=== PATIENT | female | born 1995 | race Caucasian/White ===

== ENCOUNTER 2022-08-08 08:39 | Outpatient (CLI) | payer BC, SELFPAY ==
[2022-08-08 11:05] LABS: HIV 1/2/P24 Combo Screen* Negative (Negative)
[2022-08-08 11:40] LABS: Chlamydia DNA Amplified* NOT DETECTED (No Detected); GC DNA Amplified* NOT DETECTED (No Detected)
[2022-08-08 11:44] LABS: Chloride* 105 mmol/L (96-114); Potassium* 4.5 mmol/L (3.6-5.1); Sodium* 141 mmol/L (135-149)
[2022-08-08 11:46] LABS: Creatinine* 0.7 mg/dL (0.5-1.5); Estimated Glomerular Filt Rate 121 ml/min
[2022-08-08 11:47] LABS: Blood Urea Nitrogen* 16 mg/dL (5-24); Calcium* 9.5 mg/dL (8.4-10.6); Carbon Dioxide* 25 mmol/L (20-32); Glucose* 111 mg/dL (60-115)
[2022-08-08 12:15] LABS: Hepatitis B Surface Antigen* Negative (Negative)
[2022-08-08 12:32] LABS: Hepatitis C Virus Antibody* Negative (Negative)
[2022-08-09 20:38] LABS: Rapid Plasma Reagin (RPR) Non Reactive (Non Reactive)
== END 2022-08-08 08:40 | disposition home or self-care (01) ==
PROVIDERS: PCP Family Medicine; Visit Provider Obstetrics & Gynecology
DX: Z01.419 Encounter for gynecological examination (general) (routine) without abnormal findings (principal); Z13.29 Encounter for screening for other suspected endocrine disorder; Z11.3 Encounter for screening for infections with a predominantly sexual mode of transmission; Z11.59 Encounter for screening for other viral diseases
CPT/HCPCS: 80048; 84443; 86592; 86703; 86803; 87340; 87491; 87591

== ENCOUNTER 2023-05-20 15:12 | Outpatient (CLI) | payer BC, SELFPAY | END 2023-05-20 15:13 | disposition home or self-care (01) | LOC: AMB 05-21 10:58 | PROVIDERS: PCP Family Medicine; Visit Provider Family Medicine | DX: S09.93XA Unspecified injury of face, initial encounter (principal); S19.9XXA Unspecified injury of neck, initial encounter; Y04.2XXA Assault by strike against or bumped into by another person, initial encounter | CPT/HCPCS: A0425; A0429 ==

== ENCOUNTER 2023-05-20 15:33 | Emergency (ER) | payer BC, SELFPAY ==
[2023-05-20 15:46] VITALS: BP 140/92; PULSE 67; RESP 16; TEMP 36.8; O2SAT 97; BMI 35.1
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
--- NOTE | 2023-05-20 16:10 | CRLHL7_ITS ---
For Patients: As a result of the Century Cures Act, medical imaging exams and procedure reports are released immediately into your electronic medical record. You may view this report before your referring provider. If you have questions, please contact your health care provider. Indication: Trauma. Facial pain Technique: Noncontrast axial CT of the facial bones with coronal reformats are provided. No comparisons. Findings: Very mild mucosal thickening within the floor of the maxillary sinuses. The remainder of the visualized paranasal sinuses are clear. The ostiomeatal complexes are patent bilaterally. The visualized intraorbital contents appear within normal limits. The visualized osseous structures of the face appear intact. Mild lucencies surround the posterior mandibular molars that appears chronic in nature. Impression: 1. No radiographic evidence of acute osseous injury. 2. Very mild inflammatory changes within the floor of the maxillary sinuses. Dictated by Juanpablo Huddleston MD @ 05/20/2023 5:27:00 PM Please note that all CT scans at this facility use dose modulation, iterative reconstruction, and/or weight-based dosing when appropriate to reduce radiation dose to as low as reasonably achievable. Dictated by: Juanpablo Huddleston MD @ 05/20/2023 17:27:08 (Electronically Signed)
--- NOTE | 2023-05-20 16:10 | CRLHL7_ITS ---
For Patients: As a result of the Century Cures Act, medical imaging exams and procedure reports are released immediately into your electronic medical record. You may view this report before your referring provider. If you have questions, please contact your health care provider. INDICATION: Headache. Trauma. TECHNIQUE: Non-contrast CT of the head is submitted. No comparisons. FINDINGS: The ventricles, sulci and gyri are of normal size, shape and contour. Midline structures are centrally located. No convincing evidence of intra- or extra-axial fluid collections. IMPRESSION: 1. No radiographic evidence of acute intracranial abnormalities. Dictated by Juanpablo Huddleston MD @ 05/20/2023 5:24:44 PM Please note that all CT scans at this facility use dose modulation, iterative reconstruction, and/or weight-based dosing when appropriate to reduce radiation dose to as low as reasonably achievable. Dictated by: Juanpablo Huddleston MD @ 05/20/2023 17:24:54 (Electronically Signed)
[2023-05-20] MEDS: ONDANSETRON ODT 4 MG TAB PO (16:20)
[2023-05-20] MEDS: ACETAMINOPHEN 500 MG TABLET 1000 MG PO (16:20)
== END 2023-05-20 18:00 | disposition home or self-care (01) ==
PROVIDERS: Emergency Provider Family Medicine; PCP Family Medicine
DX: S06.0X0A Concussion without loss of consciousness, initial encounter (principal); Y04.2XXA Assault by strike against or bumped into by another person, initial encounter
CPT/HCPCS: 70450; 70486; 99283; 99284; A9270

== ENCOUNTER 2023-06-09 20:08 | Outpatient (CLI) | payer BC, SELFPAY | END 2023-06-09 20:09 | disposition home or self-care (01) | LOC: AMB 06-12 12:26 | PROVIDERS: PCP Family Medicine; Visit Provider Emergency Medicine | DX: R07.89 Other chest pain (principal) | CPT/HCPCS: A0425; A0427 ==

== ENCOUNTER 2023-06-09 20:39 | Emergency (ER) | payer BC, SELFPAY ==
[2023-06-09] VITALS (19 sets, daily range): BP systolic 116–134; BP diastolic 58–88; PULSE 38–72; RESP 16–18; TEMP 35.8; O2SAT 98–100
--- NOTE | 2023-06-09 20:56 | CRLHL7_ITS ---
For Patients: As a result of the Century Cures Act, medical imaging exams and procedure reports are released immediately into your electronic medical record. You may view this report before your referring provider. If you have questions, please contact your health care provider. INDICATION: Chest pain. TECHNIQUE: Chest 2 views. COMPARISON: None. FINDINGS: Cardiovascular and mediastinum: Heart size and vasculature are normal in caliber and appearance. Lungs and pleural spaces: Lungs are clear. No sign of infiltrate or mass. No sign of pleural effusion. No pneumothorax. Bones and soft tissues: No significant findings. IMPRESSION: No acute or significant findings. Dictated by Talon Almaguer MD @ 06/09/2023 11:01:57 PM (Electronically Signed)
[2023-06-09] MEDS: 0.9 % SODIUM CHLORIDE 1000 ml 1,000 ML IV (21:00)
[2023-06-09 21:19] LABS: Basophils Absolute Auto 0.03 K/uL (0.00-0.30); Basophils Percent Auto 0.4 % (0.0-3.0); Eosinophils Absolute Auto 0.08 K/uL (0.00-0.50); Eosinophils Percent Auto 1.2 % (0.0-7.0); Hematocrit 40.8 % (33.0-51.0); Hemoglobin* 13.7 gm/dL (12.0-16.0); Immature Granulocytes Abs Auto 0.01 K/uL (0.00-0.30); Immature Granulocytes Pct Auto 0.1 %; Lymphocytes Absolute Auto 2.02 K/uL (0.90-2.90); Lymphocytes Percent Auto 29.1 % (20-44); Mean Corpuscular HGB Conc 34 gm/dL (32-36); Mean Corpuscular Hemoglobin 29 pg (26-34); Mean Corpuscular Volume 85 fL (80-100); Monocytes Percent Auto 4.9 % (0.0-11.0); Neutrophils Absolute Auto 4.47 K/uL (1.7-7.0); Neutrophils Percent Auto 64.3 % (42.0-72.0); Platelet Count* 266 K/uL (140-440); RDW Coefficient of Variation % 12.7 % (11.5-15.5); Red Blood Count 4.81 m/uL (4.00-5.20); White Blood Count* 6.95 K/uL (4.50-11.00)
[2023-06-09 21:23] LABS: Slide Review Reflex No
[2023-06-09 21:31] LABS: Chloride* 111 mmol/L (96-114); Potassium* 3.5 mmol/L (3.6-5.1); Sodium* 140 mmol/L (135-149)
[2023-06-09 21:34] LABS: Creatinine* 0.7 mg/dL (0.5-1.5); Estimated Glomerular Filt Rate 121 ml/min
--- NOTE | 2023-06-09 21:34 | ED.CHESTPAIN ---
HPI - Chest Pain General Date Seen: 06/09/23 <Romario Lopez MD - Last Filed: 06/09/23 23:46> Chief Complaint: Chest Pain <Romario Lopez MD - Last Filed: 06/09/23 23:46> Stated Complaint: Chest Pain <Romario Lopez MD - Last Filed: 06/09/23 23:46> Time Seen by Provider: 06/09/23 20:51 <Romario Lopez MD - Last Filed: 06/09/23 23:46> Source: patient and EMS <Romario Lopez MD - Last Filed: 06/09/23 23:46> Mode of arrival: EMS <Romario Lopez MD - Last Filed: 06/09/23 23:46> Limitations: no limitations <Romario Lopez MD - Last Filed: 06/09/23 23:46> History of Present Illness HPI narrative: Patient is a 27-year-old female who was at home, when she had an episode of chest pain, sweatiness and nausea, the chest pain radiated to her left scapular region, she felt very faint and moving around. 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 She has kind of been lost to follow-up, but did follow-up with the [facility], she saw supervisor maintenance there few years ago, was told that she may need a pacemaker. She had a very slow heart rate, anywhere between 30 and 80 in the rate, and they were concerned, they brought her here lights and sirens, and also started air care. Here she is having some very mild chest pain, no history of any falls trauma, she denies any syncopal episodes, she has had no previous episodes of chest pain. But does have a history of anxiety, <Romario Lopez MD - Last Filed: 06/09/23 23:46> MD complaint: chest pain <Romario Lopez MD - Last Filed: 06/09/23 23:46> Pertinent past history: other (Transposition of the great arteries) <Romario Lopez MD - Last Filed: 06/09/23 23:46> Onset (ago): minute(s) <Romario Lopez MD - Last Filed: 06/09/23 23:46> Timing of current episode: constant <Romario Lopez MD - Last Filed: 06/09/23 23:46> Prior episodes: No <Romario Lopez MD - Last Filed: 06/09/23 23:46> Onset: during rest <Romario Lopez MD - Last Filed: 06/09/23 23:46> Pain location: substernal and left chest <Romario Lopez MD - Last Filed: 06/09/23 23:46> Pain radiation: left scapula <Romario Lopez MD - Last Filed: 06/09/23 23:46> Severity: moderate <Romario Lopez MD - Last Filed: 06/09/23 23:46> Quality: tightness and aching <Romario Lopez MD - Last Filed: 06/09/23 23:46> Exacerbating factors: inspiration, palpation and movement <Romario Lopez MD - Last Filed: 06/09/23 23:46> Associated symptoms: nausea, diaphoresis and sense of impending doom <Romario Lopez MD - Last Filed: 06/09/23 23:46> Treatment prior to arrival: aspirin and nitroglycerin <Romario Lopez MD - Last Filed: 06/09/23 23:46> Risk Factors Thoracic aortic dissection risk factors: none <Romario Lopez MD - Last Filed: 06/09/23 23:46> Related Data On Oral Contraceptives: No <Romario Lopez MD - Last Filed: 06/09/23 23:46> Home Medications: Home Medications Medication Instructions Recorded Confirmed albuterol sulfate 90 mcg/actuation 2 inhalation PRN 05/16/22 05/20/23 aerosol inhaler biotin 10,000 mcg chewable tablet mcg PO 12/07/22 05/20/23 (Hair, Skin and Nails (biotin)) cannibis 12/07/22 05/20/23 eugene-inositol PO QDAY 12/07/22 05/20/23 prenat.vits,justin,vol-nrec-srrxj 1 tab PO QDAY 12/07/22 05/20/23 clonazepam 0.5 mg tablet 0.5 mg PO BID PRN anxiety 05/20/23 05/20/23 Previous Rx's Medication Instructions Recorded divalproex 500 mg tablet,extended 1,000 mg (2 x 500 mg) PO QDAY #60 12/07/22 release 24 hr (Depakote ER) tabs lorazepam 1 mg tablet 1 mg PO QDAY PRN anxiety #30 tabs 12/07/22 <Romario Lopez MD - Last Filed: 06/09/23 23:46> Allergies/Adverse Reactions: Allergies Allergy/AdvReac Type Severity Reaction Status Date / Time lurasidone Allergy Intermediate Headache Verified 05/20/23 15:57 venlafaxine Allergy Intermediate Unknown Verified 05/20/23 15:57 fentanyl Allergy Unknown Verified 05/20/23 15:57 hydromorphone Allergy Unknown Verified 05/20/23 15:57 opiates Allergy itcy and Uncoded 05/20/23 15:58 hives <Romario Lopez MD - Last Filed: 06/09/23 23:46> Review of Systems Status of ROS Reports: 10 or more systems reviewed and unremarkable except as noted in History and below <Romario Lopez MD - Last Filed: 06/09/23 23:46> [facility] Medical History: Medical History Major depression, recurrent ?F33.9 - Major depressive disorder, recurrent, unspecified (ICD-10) Generalized anxiety disorder ?F41.1 - Generalized anxiety disorder (ICD-10) Mild intermittent asthma ?J45.20 - Mild intermittent asthma, uncomplicated (ICD-10) 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 - Discordant ventriculoarterial connection (ICD-10) Posttraumatic stress disorder ?F43.10 - Post-traumatic stress disorder, unspecified (ICD-10) Infection due to severe acute respiratory syndrome coronavirus 2 (SARS-CoV-2) ?U07.1 - COVID-19 (ICD-10) History of pre-eclampsia (01/2017) ?Z87.59 - Personal history of other complications of , childbirth and the [place] (ICD-10) History of abnormal cervical Papanicolaou smear (01/2019) ?Z87.42 - Personal history of other diseases of the female genital tract (ICD-10) Heart murmur ?R01.1 - Cardiac murmur, unspecified (ICD-10) Closed fracture of fifth metacarpal bone ?S62.308A - Unspecified fracture of other metacarpal bone, initial encounter for closed fracture (ICD-10) Bipolar disorder ?F31.9 - Bipolar disorder, unspecified (ICD-10) <Romario Lopez MD - Last Filed: 06/09/23 23:46> Surgical History: Surgical History History of right knee surgery (11/23/15) ?Z98.890 - Other specified postprocedural states (ICD-10) History of laparoscopic cholecystectomy (06/2017) ?Z90.49 - Acquired absence of other specified parts of digestive tract (ICD-10) History of 2 sections (2013) ?Z98.891 - History of uterine scar from previous surgery (ICD-10) <Romario Lopez MD - Last Filed: 06/09/23 23:46> Family History: Family History Brother Bipolar disorder Depression Hepatitis Maternal Grandfather Colon cancer Heart disease Mother Depression Heart disease Diabetes Sister Depression Diabetes Maternal Grandmother Heart disease Paternal Grandmother Ovarian cancer <Romario Lopez MD - Last Filed: 06/09/23 23:46> Social History: Social History Narrative: Single, 2 kids, non-smoker, social EtOH, unemployed, Restricted [place] Smoking Status: Never smoker Do you use any of these nicotine containing products: None How often do you have a drink containing alcohol: never AUDIT-C Alcohol total score: 0 Non-prescribed substance use: marijuana (any form) Non-prescribed substance use details: medical Little interest or pleasure in doing things: nearly every day Feeling down, depressed, or hopeless: nearly every day <Romario Lopez MD - Last Filed: 06/09/23 23:46> Exam Narrative Exam Narrative: Patient is seen and stabilization 1 room. She is speaking to me normally able to scoot from the ambulance gurney over to the bed. Describing the pain over her chest region, her heart rates anywhere from 40 255. Appears to be sinus with occasional pauses. Pupils are equal round reactive to light there is no scleral icterus redness TMs are normal oropharynx normal there is no adenopathy anterior posterior chains her chest is clear bilaterally with no wheezing crackles noted, heart sounds are normal, is no clicks murmurs or gallops, her abdomen is soft, there is no guarding, normal bowel sounds are noted, with no organomegaly, scars on her chest are noted. No palpable chest pain is noted. She has moved able to move all extremities independently well, her pulses in lower extremities and arms are normal. There is no edema, and neurologically she is intact. <Romario Lopez MD - Last Filed: 06/09/23 23:46> Const Vital Signs, click to edit/add: Vital Signs - 24 hr 06/09/23 20:46 06/09/23 20:58 06/09/23 21:00 Temperature 96.5 F L Pulse Rate 68 72 Pulse Rate [Right Pulse Oximeter] 54 L Respiratory Rate 16 Blood Pressure Blood Pressure [Right Upper Arm] 134/88 Pulse Oximetry 100 100 100 Oxygen Delivery Method Room Air 06/09/23 21:02 06/09/23 21:20 06/09/23 21:22 Temperature Pulse Rate 48 L 41 L Pulse Rate [Right Pulse Oximeter] Respiratory Rate 18 18 Blood Pressure 122/69 125/83 Blood Pressure [Right Upper Arm] Pulse Oximetry 100 98 100 Oxygen Delivery Method Room Air Room Air 06/09/23 21:40 06/09/23 21:42 06/09/23 22:00 Temperature Pulse Rate 62 38 L Pulse Rate [Right Pulse Oximeter] Respiratory Rate Blood Pressure 130/84 Blood Pressure [Right Upper Arm] Pulse Oximetry 100 98 99 Oxygen Delivery Method 06/09/23 22:02 06/09/23 22:20 06/09/23 22:22 Temperature Pulse Rate 38 L 40 L Pulse Rate [Right Pulse Oximeter] Respiratory Rate Blood Pressure 120/70 131/76 Blood Pressure [Right Upper Arm] Pulse Oximetry 98 100 Oxygen Delivery Method 06/09/23 22:40 Temperature Pulse Rate 40 L Pulse Rate [Right Pulse Oximeter] Respiratory Rate Blood Pressure Blood Pressure [Right Upper Arm] Pulse Oximetry 99 Oxygen Delivery Method <Romario Lopez MD - Last Filed: 06/09/23 23:46> Vital Signs - 24 hr 06/09/23 20:46 06/09/23 20:58 06/09/23 21:00 Temperature 96.5 F L Pulse Rate 68 72 Pulse Rate [Right Pulse Oximeter] 54 L Respiratory Rate 16 Blood Pressure Blood Pressure [Right Upper Arm] 134/88 Pulse Oximetry 100 100 100 Oxygen Delivery Method Room Air 06/09/23 21:02 06/09/23 21:20 06/09/23 21:22 Temperature Pulse Rate 48 L 41 L Pulse Rate [Right Pulse Oximeter] Respiratory Rate 18 18 Blood Pressure 122/69 125/83 Blood Pressure [Right Upper Arm] Pulse Oximetry 100 98 100 Oxygen Delivery Method Room Air Room Air 06/09/23 21:40 06/09/23 21:42 06/09/23 22:00 Temperature Pulse Rate 62 38 L Pulse Rate [Right Pulse Oximeter] Respiratory Rate Blood Pressure 130/84 Blood Pressure [Right Upper Arm] Pulse Oximetry 100 98 99 Oxygen Delivery Method 06/09/23 22:02 06/09/23 22:20 06/09/23 22:22 Temperature Pulse Rate 38 L 40 L Pulse Rate [Right Pulse Oximeter] Respiratory Rate Blood Pressure 120/70 131/76 Blood Pressure [Right Upper Arm] Pulse Oximetry 98 100 Oxygen Delivery Method 06/09/23 22:40 Temperature Pulse Rate 40 L Pulse Rate [Right Pulse Oximeter] Respiratory Rate Blood Pressure Blood Pressure [Right Upper Arm] Pulse Oximetry 99 Oxygen Delivery Method <Rufina Mcfadden MD - Last Filed: 06/10/23 01:02> Documenting provider has reviewed patient's vital signs: yes <Romario Lopez MD - Last Filed: 06/09/23 23:46> Course Course Hospital Course: Patient continues to be bradycardiac in 35-40 range. She is symptomatic when she is sitting up, I did speak to from cardiology at the [facility], unfortunately are full, they are checking for beds at [facility]. He agrees that she needs to be transferred to electrophysiology and possible pacemaker placement <Romario Lopez MD - Last Filed: 06/09/23 23:46> Reevaluation(s) Time of Reevaluation #1: 23:46 <Romario Lopez MD - Last Filed: 06/09/23 23:46> Reevaluation #1: Patient in the room, continues to be bradycardiac between 37 and also 41. I did speak to from Cardiology, he recommended that we transfer to [facility], I understand they have a bed there, where were currently waiting for a call back from the hospitalist. <Romario Lopez MD - Last Filed: 06/09/23 23:46> Reevaluation #2: Spoke to Dr. Mcgrath, cardiology at [facility], as well as Dr. Das, hospitalist who accepted the patient for transfer. Patient has remained hemodynamically stable although bradycardic while she has been here. <Rufina Mcfadden MD - Last Filed: 06/10/23 01:02> Vital Signs Vital signs: Initial Vital Signs Temperature 96.5 F L 06/09/23 20:46 Temperature Source Temporal Artery Scan 06/09/23 20:46 Pulse Rate 54 L 06/09/23 20:46 Pulse Rhythm Regular 06/09/23 20:46 Respiratory Rate 16 06/09/23 20:46 Blood Pressure 134/88 06/09/23 20:46 Blood Pressure Mean 103 06/09/23 20:46 Blood Pressure Position Semi-Fowlers 06/09/23 20:46 Pulse Oximetry 100 06/09/23 20:46 Oxygen Delivery Method Room Air 06/09/23 20:46 Vital Signs Temperature 96.5 F L 06/09/23 20:46 Pulse Rate 54 L 06/09/23 20:46 Respiratory Rate 16 06/09/23 20:46 Blood Pressure 134/88 06/09/23 20:46 Pulse Oximetry 100 06/09/23 20:46 Oxygen Delivery Method Room Air 06/09/23 20:46 Temperature 96.5 F L 06/09/23 20:46 Pulse Rate 40 L 06/09/23 22:40 Respiratory Rate 18 06/09/23 21:22 Blood Pressure 131/76 06/09/23 22:22 Pulse Oximetry 99 06/09/23 22:40 Oxygen Delivery Method Room Air 06/09/23 21:22 <Romario Lopez MD - Last Filed: 06/09/23 23:46> Initial Vital Signs Temperature 96.5 F L 06/09/23 20:46 Temperature Source Temporal Artery Scan 06/09/23 20:46 Pulse Rate 54 L 06/09/23 20:46 Pulse Rhythm Regular 06/09/23 20:46 Respiratory Rate 16 06/09/23 20:46 Blood Pressure 134/88 06/09/23 20:46 Blood Pressure Mean 103 06/09/23 20:46 Blood Pressure Position Semi-Fowlers 06/09/23 20:46 Pulse Oximetry 100 06/09/23 20:46 Oxygen Delivery Method Room Air 06/09/23 20:46 Vital Signs Temperature 96.5 F L 06/09/23 20:46 Pulse Rate 54 L 06/09/23 20:46 Respiratory Rate 16 06/09/23 20:46 Blood Pressure 134/88 06/09/23 20:46 Pulse Oximetry 100 06/09/23 20:46 Oxygen Delivery Method Room Air 06/09/23 20:46 Temperature 96.5 F L 06/09/23 20:46 Pulse Rate 40 L 06/09/23 22:40 Respiratory Rate 18 06/09/23 21:22 Blood Pressure 131/76 06/09/23 22:22 Pulse Oximetry 99 06/09/23 22:40 Oxygen Delivery Method Room Air 06/09/23 21:22 <Rufina Mcfadden MD - Last Filed: 06/10/23 01:02> MDM - Chest Pain MDM Narrative Medical decision making narrative: During the evaluation of this patient I considered multiple differential diagnosis is. The life-threatening differential diagnosis include coronary disease/[place], pulmonary embolism, pneumothorax, pneumonia, and aortic dissection. Other differential diagnosis included but were not limited to pericarditis, myocarditis, chest wall pain, GERD, esophageal rupture, rib fracture contusion, pleurisy, as well as other etiologies. <Romario Lopez MD - Last Filed: 06/09/23 23:46> During the evaluation of this patient I considered multiple differential diagnosis is. The life-threatening differential diagnosis include coronary disease/AZ, pulmonary embolism, pneumothorax, pneumonia, and aortic dissection. Other differential diagnosis included but were not limited to pericarditis, myocarditis, chest wall pain, GERD, esophageal rupture, rib fracture contusion, pleurisy, as well as other etiologies. Patient will be transferred to [facility] at this time, patient transferred in stable condition. <Rufina Mcfadden MD - Last Filed: 06/10/23 01:02> Medical Records Data Attestation: I reviewed the patient's medical records. <Romario Lopez MD - Last Filed: 06/09/23 23:46> Lab Data Labs: Lab Results 06/09/23 06/09/23 06/09/23 Range/Units 20:57 21:11 21:24 WBC 6.95 (4.50-11.00) K/uL RBC 4.81 (4.00-5.20) m/uL Hgb 13.7 (12.0-16.0) gm/dL Hct 40.8 (33.0-51.0) % MCV 85 (80-100) fL MCH 29 (26-34) pg MCHC 34 (32-36) gm/dL RDW Coeff of Adri 12.7 (11.5-15.5) % Plt Count 266 (140-440) K/uL Neut % (Auto) 64.3 (42.0-72.0) % Lymph % (Auto) 29.1 (20-44) % [place] % (Auto) 4.9 (0.0-11.0) % Eos % (Auto) 1.2 (0.0-7.0) % Baso % (Auto) 0.4 (0.0-3.0) % Neut # (Auto) 4.47 (1.7-7.0) K/uL Lymph # (Auto) 2.02 (0.90-2.90) K/uL [place] # (Auto) 0.30 (0.00-0.90) K/UL Eos # (Auto) 0.08 (0.00-0.50) K/uL Baso # (Auto) 0.03 (0.00-0.30) K/uL Abs Immat Gran (auto) 0.01 (0.00-0.30) K/uL Imm/Tot Granulo (auto) 0.1 % D-Dimer Quant (PE/DVT) < 0.27 (0.00-0.50) ug/ml Sodium 140 (135-149) mmol/L Potassium 3.5 L (3.6-5.1) mmol/L Chloride 111 (96-114) mmol/L Carbon Dioxide 19 L (20-32) mmol/L BUN 17 (5-24) mg/dL Creatinine 0.7 (0.5-1.5) mg/dL Estimated GFR 121 ml/min Glucose 99 (60-115) mg/dL Calcium 9.0 (8.4-10.6) mg/dL NT-Pro-B Natriuret Pep 25 pg/mL HCG, Qual Negative (Negative) Ethyl Alcohol < 0.01 L (0.01-0.03) % SARS-CoV-2 (PCR) Negative SARS-CoV-2 (Negative) Influenza Type A (PCR) Negative PCR FLU A (Negative) Influenza Type B (PCR) Negative PCR FLU B (Negative) RSV (PCR) Negative PCR RSV (Negative) POC Troponin I 0.00 L (0.01-0.04) ng/ml 06/09/23 Range/Units 23:00 WBC (4.50-11.00) K/uL RBC (4.00-5.20) m/uL Hgb (12.0-16.0) gm/dL Hct (33.0-51.0) % MCV (80-100) fL MCH (26-34) pg MCHC (32-36) gm/dL RDW Coeff of Adri (11.5-15.5) % Plt Count (140-440) K/uL Neut % (Auto) (42.0-72.0) % Lymph % (Auto) (20-44) % [place] % (Auto) (0.0-11.0) % Eos % (Auto) (0.0-7.0) % Baso % (Auto) (0.0-3.0) % Neut # (Auto) (1.7-7.0) K/uL Lymph # (Auto) (0.90-2.90) K/uL [place] # (Auto) (0.00-0.90) K/UL Eos # (Auto) (0.00-0.50) K/uL Baso # (Auto) (0.00-0.30) K/uL Abs Immat Gran (auto) (0.00-0.30) K/uL Imm/Tot Granulo (auto) % D-Dimer Quant (PE/DVT) (0.00-0.50) ug/ml Sodium (135-149) mmol/L Potassium (3.6-5.1) mmol/L Chloride (96-114) mmol/L Carbon Dioxide (20-32) mmol/L BUN (5-24) mg/dL Creatinine (0.5-1.5) mg/dL Estimated GFR ml/min Glucose (60-115) mg/dL Calcium (8.4-10.6) mg/dL NT-Pro-B Natriuret Pep pg/mL HCG, Qual (Negative) Ethyl Alcohol (0.01-0.03) % SARS-CoV-2 (PCR) (Negative) Influenza Type A (PCR) (Negative) Influenza Type B (PCR) (Negative) RSV (PCR) (Negative) POC Troponin I 0.01 (0.01-0.04) ng/ml <Romario Lopez MD - Last Filed: 06/09/23 23:46> Lab Results 06/09/23 06/09/23 06/09/23 Range/Units 20:57 21:11 21:24 WBC 6.95 (4.50-11.00) K/uL RBC 4.81 (4.00-5.20) m/uL Hgb 13.7 (12.0-16.0) gm/dL Hct 40.8 (33.0-51.0) % MCV 85 (80-100) fL MCH 29 (26-34) pg MCHC 34 (32-36) gm/dL RDW Coeff of Adri 12.7 (11.5-15.5) % Plt Count 266 (140-440) K/uL Neut % (Auto) 64.3 (42.0-72.0) % Lymph % (Auto) 29.1 (20-44) % [place] % (Auto) 4.9 (0.0-11.0) % Eos % (Auto) 1.2 (0.0-7.0) % Baso % (Auto) 0.4 (0.0-3.0) % Neut # (Auto) 4.47 (1.7-7.0) K/uL Lymph # (Auto) 2.02 (0.90-2.90) K/uL [place] # (Auto) 0.30 (0.00-0.90) K/UL Eos # (Auto) 0.08 (0.00-0.50) K/uL Baso # (Auto) 0.03 (0.00-0.30) K/uL Abs Immat Gran (auto) 0.01 (0.00-0.30) K/uL Imm/Tot Granulo (auto) 0.1 % D-Dimer Quant (PE/DVT) < 0.27 (0.00-0.50) ug/ml Sodium 140 (135-149) mmol/L Potassium 3.5 L (3.6-5.1) mmol/L Chloride 111 (96-114) mmol/L Carbon Dioxide 19 L (20-32) mmol/L BUN 17 (5-24) mg/dL Creatinine 0.7 (0.5-1.5) mg/dL Estimated GFR 121 ml/min Glucose 99 (60-115) mg/dL Calcium 9.0 (8.4-10.6) mg/dL NT-Pro-B Natriuret Pep 25 pg/mL HCG, Qual Negative (Negative) Ethyl Alcohol < 0.01 L (0.01-0.03) % SARS-CoV-2 (PCR) Negative SARS-CoV-2 (Negative) Influenza Type A (PCR) Negative PCR FLU A (Negative) Influenza Type B (PCR) Negative PCR FLU B (Negative) RSV (PCR) Negative PCR RSV (Negative) POC Troponin I 0.00 L (0.01-0.04) ng/ml 06/09/23 Range/Units 23:00 WBC (4.50-11.00) K/uL RBC (4.00-5.20) m/uL Hgb (12.0-16.0) gm/dL Hct (33.0-51.0) % MCV (80-100) fL MCH (26-34) pg MCHC (32-36) gm/dL RDW Coeff of Adri (11.5-15.5) % Plt Count (140-440) K/uL Neut % (Auto) (42.0-72.0) % Lymph % (Auto) (20-44) % [place] % (Auto) (0.0-11.0) % Eos % (Auto) (0.0-7.0) % Baso % (Auto) (0.0-3.0) % Neut # (Auto) (1.7-7.0) K/uL Lymph # (Auto) (0.90-2.90) K/uL [place] # (Auto) (0.00-0.90) K/UL Eos # (Auto) (0.00-0.50) K/uL Baso # (Auto) (0.00-0.30) K/uL Abs Immat Gran (auto) (0.00-0.30) K/uL Imm/Tot Granulo (auto) % D-Dimer Quant (PE/DVT) (0.00-0.50) ug/ml Sodium (135-149) mmol/L Potassium (3.6-5.1) mmol/L Chloride (96-114) mmol/L Carbon Dioxide (20-32) mmol/L BUN (5-24) mg/dL Creatinine (0.5-1.5) mg/dL Estimated GFR ml/min Glucose (60-115) mg/dL Calcium (8.4-10.6) mg/dL NT-Pro-B Natriuret Pep pg/mL HCG, Qual (Negative) Ethyl Alcohol (0.01-0.03) % SARS-CoV-2 (PCR) (Negative) Influenza Type A (PCR) (Negative) Influenza Type B (PCR) (Negative) RSV (PCR) (Negative) POC Troponin I 0.01 (0.01-0.04) ng/ml <Rufina Mcfadden MD - Last Filed: 06/10/23 01:02> ECG Data Attestation: I personally reviewed and interpreted this ECG as follows: <Romario Lopez MD - Last Filed: 06/09/23 23:46> ECG interpretation time: 21:39 <Romario Lopez MD - Last Filed: 06/09/23 23:46> Prior ECG tracings: not available for review <Romario Lopez MD - Last Filed: 06/09/23 23:46> Interpretation: Sinus bradycardia, with the sinus arrhythmias noted. <Romario Lopez MD - Last Filed: 06/09/23 23:46> Discharge Plan Discharge Clinical Impression: Transposition of great arteries, Bradycardia, Heart murmur, Chest pain <Romario Lopez MD - Last Filed: 06/09/23 23:46> Patient Disposition: Xfer Other <Romario Lopez MD - Last Filed: 06/09/23 23:46> Discharge Location: [facility] <Romario Lopez MD - Last Filed: 06/09/23 23:46> Condition: Guarded <Romario Lopez MD - Last Filed: 06/09/23 23:46> Prescriptions: No Action albuterol sulfate 90 mcg/actuation HFA aerosol inhaler 2 inhalation PRN Hair, Skin and Nails (biotin) 10,000 mcg tablet,chewable PO prenat.vits,justin,rab-pwaf-fbian Tablet 1 tab PO QDAY eugene-inositol 2,000 mg PO QDAY (DME) cannibis 0 .ROUTE .MEDSUPPLY lorazepam 1 mg tablet 1 mg PO QDAY PRN (Reason: anxiety) Qty: 30 0RF divalproex [Depakote ER] 500 mg tablet extended release 24 hr 1,000 mg PO QDAY Qty: 60 1RF clonazepam 0.5 mg tablet 0.5 mg PO BID PRN (Reason: anxiety) <Romario Lopez MD - Last Filed: 06/09/23 23:46> Stand Alone Forms: MyHealth Info Instructions <Romario Lopez MD - Last Filed: 06/09/23 23:46>
[2023-06-09 21:35] LABS: Blood Urea Nitrogen* 17 mg/dL (5-24); Carbon Dioxide* 19 mmol/L (20-32); Glucose* 99 mg/dL (60-115)
[2023-06-09 21:40] LABS: Ethanol* < 0.01 % (0.01-0.03)
[2023-06-09 21:43] LABS: NT Pro B Type NatriureticPept* 25 pg/mL
[2023-06-09 21:44] LABS: HCG Qualitative Serum* Negative (Negative)
[2023-06-09 21:57] LABS: D Dimer Quantitative* < 0.27 ug/ml (0.00-0.50)
[2023-06-09 22:08] LABS: PCR FLU A Negative PCR FLU A (Negative); PCR FLU B Negative PCR FLU B (Negative); PCR RSV Negative PCR RSV (Negative)
[2023-06-09 22:09] LABS: SARS PCR* Negative SARS-CoV-2 (Negative)
[2023-06-09 23:16] LABS: Troponin, Point-of-Care* 0.01 ng/ml (0.01-0.04)
[2023-06-10] VITALS (14 sets, daily range): BP systolic 124–151; BP diastolic 62–95; PULSE 36–70; O2SAT 98–100
[2023-06-10 01:54] LABS: Amphetamine Screen Urine Negative (Negative); Barbiturate Screen Urine Negative (Negative); Benzodiazepines Screen Urine Negative (Negative); Cannabinoid Screen Urine POSITIVE (Negative); Cocaine Screen Urine Negative (Negative); Methadone Screen Urine Negative (Negative); Methamphetamines Screen Urine Negative (Negative); Opiate Screen Urine Negative (Negative); Oxycodone Screen Urine Negative (Negative); Phencyclidine Screen Urine Negative (Negative); Tricyclic Antidepressant Urine Negative (Negative)
--- NOTE | 2023-06-10 02:13 | ED.NURSE ---
Rn to Rn report given to Raad. Transport called. EMS arrived. Report given to Medic. Pt assisted to ambulance cot with not trouble.
== END 2023-06-10 02:16 | disposition other institution (70) ==
PROVIDERS: Family Medicine; Emergency Provider Family Medicine; PCP Family Medicine
DX: R07.9 Chest pain, unspecified (principal)
CPT/HCPCS: 36415; 71046; 80048; 80306; 82077; 83880; 84484; 84703; 85025; 85379; 87631; 93005; 94761; 99285; J7030

== ENCOUNTER 2023-06-10 02:10 | Outpatient (CLI) | payer BC, SELFPAY | END 2023-06-10 02:11 | disposition home or self-care (01) | LOC: AMB 06-12 12:33 | PROVIDERS: PCP Family Medicine; Visit Provider Family Medicine | DX: R07.89 Other chest pain (principal); M25.512 Pain in left shoulder; R00.1 Bradycardia, unspecified | CPT/HCPCS: A0425; A0427; A0428 ==